=== PATIENT | male | born 1955 | race Caucasian/White ===

== ENCOUNTER 2018-11-08 08:35 | Observation (INO) | payer MEDICARE ==
[~2018-11-08] VITALS: Ht 182.9 cm; Wt 83.9 kg
[2018-11-08 10:09] LABS: BASOPHILS ABSOLUTE AUTO 0.05 K/mm3 (0.00-0.23); BASOPHILS PERCENT AUTO 1 % (0-2); EOSINOPHILS ABSOLUTE AUTO 0.01 K/mm3 (0.00-0.68); EOSINOPHILS PERCENT AUTO 0 % (0-6); Hematocrit 51.8 % (37.0-53.0); Hemoglobin 17.6 g/dL (13.5-17.5); IMMATURE GRAN ABSOLUTE AUTO 0.03 K/mm3 (0.00-0.10); IMMATURE GRAN PERCENT AUTO 0 % (0-1); LYMPHOCYTES ABSOLUTE AUTO 1.14 K/mm3 (0.84-5.20); LYMPHOCYTES PERCENT AUTO 12 % (21-46); MONOCYTES ABSOLUTE AUTO 1.63 K/mm3 (0.16-1.47); MONOCYTES PERCENT AUTO 16 % (4-13); Mean Corpuscular HGB 30.7 pg (26.0-34.0); Mean Corpuscular Volume 90 fL (80-100); Mean Platelet Volume 9.5 fL (9.1-12.4); NEUTROPHILS ABSOLUTE AUTO 7.07 K/mm3 (1.96-9.15); NEUTROPHILS PERCENT AUTO 71 % (41-73); Platelet Count 187 K/mm3 (150-400); RDW Coefficient Variation 13.8 % (11.7-14.2); RDW Standard Deviation 46.5 fL (35.1-46.3); Red Blood Cell Count 5.74 M/mm3 (4.30-5.90); White Blood Cell Count 9.93 K/mm3 (4.00-11.30)
[2018-11-08 10:30] LABS: Alanine Aminotransfer (ALT/SGP 26 U/L (12-78); Albumin, Blood 3.5 g/dL (3.4-5.0); Albumin/Globulin Ratio 0.8 (0.8-1.8); Alk Phos 52 U/L (50-136); Anion Gap 7 mmol/L (6-16); Aspartate Aminotrans (AST/SGOT 26 U/L (12-37); Bilirubin, Total 0.4 mg/dL (0.1-1.0); Blood Urea Nitrogen 16 mg/dL (8-24); Bun/Creatinine Ratio 14.5 (12.0-20.0); CO2, Blood 29 mmol/L (21-32); Calcium, Blood 9.1 mg/dL (8.5-10.1); Chloride, Blood 100 mmol/L (98-108); Globulin, Blood 4.5 g/dL (2.2-4.0); Glomerular Filtration Rate >60 (60-); Glucose, Blood 123 mg/dL (70-99); Potassium, Blood 4.2 mmol/L (3.5-5.5); Sodium, Blood 136 mmol/L (136-145)
[2018-11-08 11:00] LABS: Influenza A Positive (NEGATIVE); Influenza B Negative (NEGATIVE)
--- NOTE | 2018-11-08 12:30 | NUR ---
PT ADMITTED. LATE ENTRY PT ADMITTED IN STABLE CONDITION WITH VSS. FAMILY AT BEDSIDE. PT & FAMILY ORIENTED TO ROOM. PT STATED HE UNDERSTOOD CALL LIGHT INSTRUCTIONS. WILL CONTINUE TO MONITOR.
--- NOTE | 2018-11-08 16:36 | NUR ---
SHIFT SUMMARY NO CHANGES IN ASSESSMENT AT THIS TIME. PT SATING IN THE 90S ON 2L O2 VIA NC. PT HAS A LOW GRADE FEVER OF 99.5. WILL CONTINUE TO MONITOR & TREAT WITH TYELNOL NEEDED. RESPIRATIONS ELEVATED. WILL MONITOR. OTHER VITALS STABLE. PT HAS FAMILY IN ROOM. AFTERNOON SNACK GIVEN. PT TOLERATING FOOD WELL. PT STARTEDON TAMAFLU FOR INFLUENZA A. WILL CONTINUE TO MONITOR UNTIL TURNOVER IS COMPLETE.
--- NOTE | 2018-11-09 04:05 | NUR ---
SHIFT SUMMARY PT ADMITTED FOR ACUTE RESP FAILURE WITH HYPOXIA. DROPLE ISOLATION FOR INFLUENZA A POSITTIVE. FULL CODE. REGULAR DIET. LOVENOX FOR DVT PROPHYLAXIS. 20 G IV TO L AC. 1 ASSIST WITH TRANSFERS. 2L O2 VIA NC. HX OF TBI PER REPORT. ACCORDING TO REPORT FAMILY TAKES TURNS CAREING FOR THE PT HE MOVES BACK AND FORTH BETWEEN HIS SON AND DAUGHTERS HOMES. FAMILY REPORTS THAT THEY ARE NOT SURE THEY CAN CONTINUE TO CARE FOR PT AND HE MAY NEED PLACEMENT PER REPORT. THE PT PRESENTED TO THE ED AFTER FEELING ILL TIMES 4 DAYS WITH C/O SORE THROAT, RUNNY NOSE, AND DECREASED APPETITE. THE PT NOTED TO BE POSITIVE FOR INFLUENZA A AND IN ED WAS FOUND TO BE SIGNIFICANTLY HYPOXIC AND ADMITTED FOR HYPOXIC RESPIRATORY FAILURE. THE PT WAS STARTED ON O2, UPDRAFT, AND TAMIFLU. THE PT NOTED TO SOUND A BIT HOARSE WITH PERSISTENT INTERMITTENT NON-PRODUCTIVE COUGH WITH EXPIRATORY WHEEZES. THE PT HAS BEEN PLEASENT, COOPERATIVE, ALERT, AND ORIENTED. THE PT APPEARES TO BE SLEEPING COMFORTABLY AT THIS TIME WITH NO APPARENT SIGNS OF ACUTE DISTRESS. ABLE TO MAKE NEEDS KNOWN AND CALL LIGHT IN REACH.
[2018-11-09 05:09] LABS: BASOPHILS ABSOLUTE AUTO 0.03 K/mm3 (0.00-0.23); BASOPHILS PERCENT AUTO 0 % (0-2); EOSINOPHILS ABSOLUTE AUTO 0.08 K/mm3 (0.00-0.68); EOSINOPHILS PERCENT AUTO 1 % (0-6); Hematocrit 48.1 % (37.0-53.0); Hemoglobin 15.6 g/dL (13.5-17.5); IMMATURE GRAN ABSOLUTE AUTO 0.01 K/mm3 (0.00-0.10); IMMATURE GRAN PERCENT AUTO 0 % (0-1); LYMPHOCYTES ABSOLUTE AUTO 1.78 K/mm3 (0.84-5.20); LYMPHOCYTES PERCENT AUTO 23 % (21-46); MONOCYTES ABSOLUTE AUTO 1.23 K/mm3 (0.16-1.47); MONOCYTES PERCENT AUTO 16 % (4-13); Mean Corpuscular HGB 30.4 pg (26.0-34.0); Mean Corpuscular HGB Conc 32.4 g/dL (31.5-36.5); Mean Corpuscular Volume 94 fL (80-100); Mean Platelet Volume 9.7 fL (9.1-12.4); NEUTROPHILS ABSOLUTE AUTO 4.56 K/mm3 (1.96-9.15); NEUTROPHILS PERCENT AUTO 59 % (41-73); Platelet Count 161 K/mm3 (150-400); RDW Coefficient Variation 13.9 % (11.7-14.2); RDW Standard Deviation 48.5 fL (35.1-46.3); Red Blood Cell Count 5.13 M/mm3 (4.30-5.90); White Blood Cell Count 7.69 K/mm3 (4.00-11.30)
[2018-11-09 05:50] LABS: Anion Gap 8 mmol/L (6-16); Blood Urea Nitrogen 16 mg/dL (8-24); CO2, Blood 26 mmol/L (21-32); Chloride, Blood 106 mmol/L (98-108); Glucose, Blood 77 mg/dL (70-99); Potassium, Blood 4.2 mmol/L (3.5-5.5); Sodium, Blood 140 mmol/L (136-145)
[2018-11-09 05:51] LABS: Calcium, Blood 8.4 mg/dL (8.5-10.1); Creatinine, Blood 1.07 mg/dL (0.60-1.20); Glomerular Filtration Rate >60 (60-)
--- NOTE | 2018-11-09 17:43 | NUR ---
SHIFT SUMMARY NO ACUTE CHANGES THIS SHIFT. PT CONTINUES TO BE ON OXYGEN. PT'S OXYGEN SATURATION 92% ON 2L. PT HAS HAD NO COMPLAINTS THIS SHIFT. RESPIRATIONS EASY/UNLABORED AT REST. WILL CONTINUE TO MONITOR AND REPORT TO ONCOMING RN. CALL LIGHT IN REACH.
--- NOTE | 2018-11-10 04:10 | NUR ---
SHIFT SUMMARY: PT IS ALERT AND ORIENTED. PT IS CALM AND COOPERATIVE WITH CARE. PT CALLS APPROPRIATELY. PT IS A ONE PERSON ASSIST FOR TRANSFERS AND AMBULATION. PT REPORTS SOB UPON EXERTION. PT DENIES PAIN, NAUSEA, VOMITING, AND SOB. PT SLEPT MUCH OF THE NIGHT WHEN NOT DISTURBED. NO ACUTE CHANGES OR COMPLICATIONS THIS SHIFT. BED IN LOW POSITION, CALL LIGHT WITHIN REACH.
--- NOTE | 2018-11-10 19:27 | NUR ---
SHIFT SUMMARY PT HAS HAD NO COMPLAINTS THIS SHIFT. PT HAS HAD NO COMPLAINTS OF SHORTNESS OF BREATH THIS SHIFT. NO ACUTE CHANGES THIS SHIFT. REPORT GIVEN TO XAVIER WALSH. CALL LIGHT IN REACH.
--- NOTE | 2018-11-11 04:56 | NUR ---
SHIFT SUMMARY PT PLEASANT AND COOPERATIVE. SLEPT OFF AND ON THROUGHOUT THE NIGHT. USED URINAL INDEPENDENTLY WHILE LAYING IN BED. LUNG SOUNDS DIMINISHED WITH WHEEZE THROUGHOUT. DRY WHEEZY NONPRODUCTIVE COUGH. CONTINUES ON 1 L O2 NC WITH O2 SATS AT 90%. NO COMPLAINTS THROUGHOUT THE NIGHT. VSS. NO ACUTE CHANGES. WILL CONTINUE TO MONITOR AND REPORT TO DAY RN.
[2018-11-11] MEDS ORDERED: OSEL75CA PO (13:15)
--- NOTE | 2018-11-11 15:09 | NUR ---
DISCHARGE NOTE IV DC'D WNL. MEDICATIONS FAXED TO PREFERED PHARMACY. PT DRESSED IN PERSONAL CLOTHES. PERSONAL BELONGINGS GATHERED FOR PT. PT GIVEN VERBAL AND HARDCOPY DISCHARGE INSTRUCTIONS ON DIAGNOSES, MEDICATIONS AND FOLLOW UP APPOINTMENTS. PT HAD NO FURTHER QUESTIONS. CALLED SON AND INFORMED HIM THAT HIS FATHER WAS READY FOR PICK-UP AND DISCHARGE. SON STATED HE WAS ENROUTE TO HOSPITAL.
== END 2018-11-11 16:16 | disposition home or self-care (01) ==
LOC: ER 08:35 → MEDS 08:36
PROVIDERS: Emergency Medicine; ADMIT Hospitalist
DX: J10.1 Influenza due to other identified influenza virus with other respiratory manifestations (principal); J96.01 Acute respiratory failure with hypoxia; K44.9 Diaphragmatic hernia without obstruction or gangrene; K21.9 Gastro-esophageal reflux disease without esophagitis; E86.0 Dehydration; Z87.820 Personal history of traumatic brain injury
CPT/HCPCS: 36415; 71046; 80048; 80053; 85025; 87804; 93005; 93010; 94640; 94760; 96361; 96372; 99284-25; G0378; J1650; J3480; J7120

== ENCOUNTER 2019-04-11 13:52 | Emergency (ER) | payer MEDICARE ==
[~2019-04-11] VITALS: Ht 182.9 cm; Wt 74.8 kg
[~2019-04-11 13:52] MED LIST: OSEL75CA PO
[2019-04-11 14:35] LABS: BASOPHILS ABSOLUTE AUTO 0.06 K/mm3 (0.00-0.23); BASOPHILS PERCENT AUTO 1 % (0-2); EOSINOPHILS ABSOLUTE AUTO 0.29 K/mm3 (0.00-0.68); EOSINOPHILS PERCENT AUTO 3 % (0-6); Hematocrit 43.4 % (37.0-53.0); Hemoglobin 14.6 g/dL (13.5-17.5); IMMATURE GRAN ABSOLUTE AUTO 0.03 K/mm3 (0.00-0.10); IMMATURE GRAN PERCENT AUTO 0 % (0-1); LYMPHOCYTES ABSOLUTE AUTO 2.64 K/mm3 (0.84-5.20); LYMPHOCYTES PERCENT AUTO 28 % (21-46); MONOCYTES ABSOLUTE AUTO 0.68 K/mm3 (0.16-1.47); MONOCYTES PERCENT AUTO 7 % (4-13); Mean Corpuscular HGB 31.3 pg (26.0-34.0); Mean Corpuscular HGB Conc 33.6 g/dL (31.5-36.5); Mean Corpuscular Volume 93 fL (80-100); Mean Platelet Volume 9.3 fL (9.1-12.4); NEUTROPHILS ABSOLUTE AUTO 5.66 K/mm3 (1.96-9.15); NEUTROPHILS PERCENT AUTO 61 % (41-73); Platelet Count 225 K/mm3 (150-400); RDW Coefficient Variation 13.1 % (11.7-14.2); RDW Standard Deviation 44.5 fL (35.1-46.3); Red Blood Cell Count 4.67 M/mm3 (4.30-5.90); White Blood Cell Count 9.36 K/mm3 (4.00-11.30)
[2019-04-11 14:54] LABS: International Normalized Ratio 1.08; Prothrombin Time Results 11.4 Sec (9.7-11.5)
[2019-04-11 15:03] LABS: Alanine Aminotransfer (ALT/SGP 16 U/L (12-78); Albumin, Blood 2.9 g/dL (3.4-5.0); Albumin/Globulin Ratio 0.8 (0.8-1.8); Alk Phos 46 U/L (50-136); Anion Gap 7 mmol/L (6-16); Aspartate Aminotrans (AST/SGOT 13 U/L (12-37); Bilirubin, Total 0.5 mg/dL (0.1-1.0); Blood Urea Nitrogen 13 mg/dL (8-24); Bun/Creatinine Ratio 11.1 (12.0-20.0); CO2, Blood 26 mmol/L (21-32); Calcium, Blood 7.7 mg/dL (8.5-10.1); Chloride, Blood 104 mmol/L (98-108); Creatinine, Blood 1.17 mg/dL (0.60-1.20); Globulin, Blood 3.5 g/dL (2.2-4.0); Glomerular Filtration Rate >60 (60-); Glucose, Blood 103 mg/dL (70-99); Sodium, Blood 137 mmol/L (136-145); Total Protein, Blood 6.4 g/dL (6.4-8.2)
== END 2019-04-11 17:17 | disposition home or self-care (01) ==
LOC: ER 13:52
PROVIDERS: Physician Assistant
DX: R56.9 Unspecified convulsions (principal); Z79.899 Other long term (current) drug therapy
CPT/HCPCS: 36415; 70450; 70496; 70498; 80053; 85025; 85610; 85730; 93005; 93010; 99285-25; Q9967

== ENCOUNTER 2024-03-27 10:19 | Observation (INO) | payer MEDICARE ==
[~2024-03-27] VITALS: Ht 172.7 cm; Wt 72.6 kg
[2024-03-27 11:08] LABS: BASOPHILS ABSOLUTE AUTO 0.06 K/mm3 (0.00-0.23); BASOPHILS PERCENT AUTO 1 % (0-2); EOSINOPHILS ABSOLUTE AUTO 0.12 K/mm3 (0.00-0.68); EOSINOPHILS PERCENT AUTO 1 % (0-6); Hematocrit 49.9 % (37.0-53.0); IMMATURE GRAN ABSOLUTE AUTO 0.03 K/mm3 (0.00-0.10); IMMATURE GRAN PERCENT AUTO 0 % (0-1); LYMPHOCYTES ABSOLUTE AUTO 2.12 K/mm3 (0.84-5.20); LYMPHOCYTES PERCENT AUTO 20 % (21-46); MONOCYTES ABSOLUTE AUTO 0.77 K/mm3 (0.16-1.47); MONOCYTES PERCENT AUTO 7 % (4-13); Mean Corpuscular HGB 30.8 pg (26.0-34.0); Mean Corpuscular HGB Conc 34.1 g/dL (31.5-36.5); Mean Corpuscular Volume 90 fL (80-100); Mean Platelet Volume 9.4 fL (9.1-12.4); NEUTROPHILS ABSOLUTE AUTO 7.53 K/mm3 (1.96-9.15); NEUTROPHILS PERCENT AUTO 71 % (41-73); Platelet Count 273 K/mm3 (150-400); RDW Coefficient Variation 14.1 % (11.7-14.2); RDW Standard Deviation 47.3 fL (35.1-46.3); Red Blood Cell Count 5.52 M/mm3 (4.30-5.90); White Blood Cell Count 10.63 K/mm3 (4.00-11.30)
[2024-03-27 11:30] LABS: Albumin, Blood 3.5 g/dL (3.4-5.0); Albumin/Globulin Ratio 0.8 (0.8-1.8); Bilirubin, Total 0.7 mg/dL (0.1-1.0); Bun/Creatinine Ratio 12.1 (12.0-20.0); Calcium, Blood 8.6 mg/dL (8.5-10.1); Creatinine, Blood 1.24 mg/dL (0.60-1.20); Globulin, Blood 4.2 g/dL (2.2-4.0); Magnesium, Blood 1.9 mg/dL (1.6-2.4); Potassium, Blood 4.4 mmol/L (3.5-5.5); Total Protein, Blood 7.7 g/dL (6.4-8.2)
[2024-03-27] MEDS ORDERED: Aspirin 325 MG Tab PO ONE (12:55)
[2024-03-27] MEDS ORDERED: Acetaminophen 325 MG TABLET PO PRN (13:40)
[2024-03-27] MEDS ORDERED: HydrALAZINE HCl 20 MG / ML 1ML Vial IV PRN (13:40)
[2024-03-27 14:00] LABS: CHOL/HDL RATIO 4.3; Cholesterol 177 mg/dL (50-200); HDL Cholesterol 41 mg/dL (>39); LDL/HDL RATIO 2.8; Low Density Lipoprotein Chol 114 mg/dL (0-110); Triglycerides 109 mg/dL (30-160); Very Low Density Lipoprot Chol 21 mg/dL (6-32)
[2024-03-27 15:06] VITALS: BP 183/101
[2024-03-27 16:36] VITALS: BP 165/90
--- NOTE | 2024-03-27 19:18 | NUR ---
report received verified, pt a/o x 4 very pleasent and a little anxious, speech slight slur from previous cva, only new deficits is that pt has blurred vison and memory problems which son says is new. pt able to answer questions with certainty. no c/o pain no distress, htn was treated with hydralazine and now better but pt c/o reoccuring double vision which md is aware of. admission done. pt ambulatory with stand by assist
[2024-03-27 19:45] VITALS: BP 160/122
[2024-03-28 04:55] VITALS: BP 153/107
--- NOTE | 2024-03-28 05:42 | NUR ---
SHIFT SUMMARY PATIENT ALERT, ORIENTED x4. ABLE TO MAKE NEEDS KNOWN TO STAFF. PATIENT REPEATS HIMSELF IN CONVERSATION AT TIMES BUT OTHERWISE NEUROLOGICALLY INTACT. EQUAL STRENGTH BILATERALLY IN ALL EXTREMITIES. PATIENT AMBULATING IN ROOM INDEPENDENTLY. NO CARDIAC EVENTS NOTED ON TELE. PERMISSIVE HYPERTENSION ALLOWED PER MD NOTE. REMAINED ON RA DURING THE NIGHT. NO OTHER CHANGES, WILL REPORT TO DAY SHIFT RN.
[2024-03-28] MEDS ORDERED: Pantoprazole Sodium 40 MG Tab PO SCH (06:00)
[2024-03-28 06:06] LABS: Bun/Creatinine Ratio 15.1 (12.0-20.0); Calcium, Blood 9.1 mg/dL (8.5-10.1); Creatinine, Blood 1.06 mg/dL (0.60-1.20)
[2024-03-28 07:33] VITALS: BP 168/112
[2024-03-28] MEDS ORDERED: Enoxaparin 40 MG/0.4 ML SYR SC SCH (09:00)
[2024-03-28] MEDS ORDERED: Atorvastatin 40 MG Tab PO SCH (09:00)
[2024-03-28] MEDS ORDERED: AmLODIPine Besylate 5 MG Tab PO SCH (09:00)
[2024-03-28] MEDS ORDERED: Clopidogrel Bisulfate 75 MG Tab PO SCH (09:00)
[2024-03-28] MEDS ORDERED: Aspirin 81 MG Chew PO SCH (09:00)
[2024-03-28 18:29] VITALS: BP 183/113
--- NOTE | 2024-03-28 18:46 | NUR ---
PT STILL HAS VISION DEFICIT. CONFIRMED CVA OCCIPTAL . HYPERTENSION MANAGED BY HYDROLYZINE.
[2024-03-28] MEDS ORDERED: Metoprolol Tartrate 25 MG Tab PO SCH (21:00)
[2024-03-28 21:27] VITALS: BP 136/98
--- NOTE | 2024-03-29 03:53 | NUR ---
SHIFT SUMMARY PATIENT APPEARED TO SLEEP THROUGH THE NIGHT. HE DID WAKE UP AT ONE POINT AND STAED HE A VERY ODD DREAM AND APPEAREDM TO BE DISORIENTATED. HE WAS ABLE TO ABULATE TO USE BATHROOM ON HIS OWN. HE WAS COOPERATIVE RECEPTIVE TO CARE BY STAFF. PRN TYLENOL AT 0104.
[2024-03-29 04:46] VITALS: BP 147/94
[2024-03-29 07:40] VITALS: BP 172/105
[2024-03-29] MEDS ORDERED: AMLO5 PO (11:01)
[2024-03-29] MEDS ORDERED: ATOR80 PO (11:01)
[2024-03-29] MEDS ORDERED: ASPI81CH PO (11:01)
[2024-03-29] MEDS ORDERED: CLOP75 PO (11:01)
[2024-03-29] MEDS ORDERED: METO50ER PO (11:02)
[2024-03-29] MEDS ORDERED: PANT40 PO (11:04)
[2024-03-29 11:49] VITALS: BP 168/99
--- NOTE | 2024-03-29 11:51 | NUR ---
DR. VENTURA NOTIFED OF COG SCORE OF 05/14. NO NEW ORDERS AT THIS TIME
[2024-03-29] MEDS ORDERED: Metoprolol Succinate 50 MG TABCR PO SCH (13:00)
--- NOTE | 2024-03-29 13:02 | NUR ---
DISCHARGE PT DISCHARGED TO CARE OF SON, AJ. AJ EDUCATED ON NEW MEDICATIONS AND FOLLOW UP INSTRUCTIONS. NEW MEDS SENT TO [facility]. PATIENT AND SON ENCOURAGED TO FIND PCP AND OTHPHAMOLOGY APPOINTMENT. SON, STATES HE UNDERSTANDS AND WILL MAKE SURE THESE APPOINTMENTS GET MADE. NO OTHER ACUTE CHANGES IN ASSESSMETN PRIOR TO DC. RN CONFIRMED THAT SON IS PTS PRIMARY CAREGIVER AND MAY NEED TO HAVE MORE SUPERVISION SINCE THE PATIENT IS MORE CONFUSED NOW AND FORGETS THINGS EASILY. AJ STATES HE UNDERSTANDS. NO FURTHER QUESTIONS REQUIRED AT TIMES OF DC. HARD SCRIPT FOR OUTPT PT GIVEN TO THE PATIENT.
== END 2024-03-29 13:02 | disposition home or self-care (01) ==
LOC: ER 10:19 → MEDS 10:20
PROVIDERS: Physician Assistant; ADMIT Family Medicine
DX: I63.9 Cerebral infarction, unspecified (principal); E78.5 Hyperlipidemia, unspecified; I12.9 Hypertensive chronic kidney disease with stage 1 through stage 4 chronic kidney disease, or unspecified chronic kidney disease; N18.30 Chronic kidney disease, stage 3 unspecified; N17.9 Acute kidney failure, unspecified; K22.89 Other specified disease of esophagus; Z87.891 Personal history of nicotine dependence; Z88.5 Allergy status to narcotic agent
CPT/HCPCS: 36415; 70450; 80048; 80053; 80061; 82947; 83036; 83735; 85025; 92610; 93306; 96372; 96374; 96376; 97116; 97129; 97130; 97161; 97166; 99285-25; A9270; G0378; J0360; J1650